=== PATIENT | male | born 1985 ===

== ENCOUNTER → 2019-11-21 | Outpatient (CLI) | payer BC ==
--- NOTE | 2019-11-23 11:48 | SLEEP ---
DATE OF STUDY: 11/21/2019 SLEEP STUDY REFERRING PHYSICIAN: Will Mckinnon MD PRIMARY CARE PHYSICIAN: Fidel Zamora MD HISTORY OF PRESENT ILLNESS: The patient is a 34-year-old who weighs 240 pounds with a BMI of 39. The patient's Shattuck score was 21. The patient underwent split night study performed at [facility]. During the night study, the patient spent 409 minutes in bed and slept for 345 minutes with a sleep efficiency of 84%. Sleep latency was 7 minutes with a REM latency of 197 minutes. Sleep architecture showed increased stage 2 sleep, normal stage 1 sleep, absent slow wave and slightly reduced REM sleep. During the initial diagnostic portion of the study, the patient slept for 73 minutes. During that time, there were 40 obstructive apneas, 11 mixed apneas, no central apneas and 40 hypopneas. The patient's AHI was 81 per hour, supine AHI 81 per hour as well and a REM AHI was absent due to lack of REM sleep. EKG monitoring revealed normal sinus rhythm, average heart rate 78 beats per minute. No sustained arrhythmias observed. Nocturnal oximetry study revealed an average oxygen saturation of 95% with lowest of 73%. 11% of time oxygen saturation remained between 80% and 89%. No clinically significant PLM seen. The patient met the criteria for CPAP initiation. It was started at 5 cm water and titrated up to 16 cm water. At the final pressure, the patient slept for 46 minutes including supine sleep, and minimal REM sleep. The patient's AHI was reduced to 0 per hour and oxygen saturation remained above 92%. The patient used a medium size full face mask. IMPRESSION: 1. Severe sleep apnea-hypopnea syndrome at an AHI of 81 per hour. 2. Nocturnal hypoxia secondary to obstructive sleep apnea, but resolved with CPAP. 3. No clinically significant periodic limb movements. RECOMMENDATIONS: 1. CPAP at 16 cm water completely eliminated the patient's sleep apnea and should be used on a nightly basis. 2. Follow up in 4-6 weeks to assess compliance with CPAP and to document clinical improvement. 3. Weight loss is strongly advised. 4. Avoid [facility] [employer] depressants. 5. Cautioned regarding driving until symptoms of sleep apnea resolve with the use of CPAP. CARMEN U. LIZAMA, MD DR: ISIAH/juan JOB#: [id number] / [id number] FIDEL Guzman GEORGE MD
== END | disposition home or self-care (01) ==
LOC: SLPLAB 18:49
PROVIDERS: ATTEND Internal Medicine Pulmonary Disease
DX: G47.33 Obstructive sleep apnea (adult) (pediatric) (principal); G47.34 Idiopathic sleep related nonobstructive alveolar hypoventilation
CPT/HCPCS: 95810